=== PATIENT | male | born 1975 | race Caucasian/White ===

== ENCOUNTER 2016-10-12 03:32 | Emergency (ER) | payer SELFPAY ==
[2016-10-12 05:17] VITALS: BP 156/111
== END 2016-10-12 05:17 | disposition other institution (70) ==
LOC: ED 03:32
DX: S00.03XA Contusion of scalp, initial encounter (principal); Y33.XXXA Other specified events, undetermined intent, initial encounter; Y93.89 Activity, other specified; Y92.89 Other specified places as the place of occurrence of the external cause; Y99.8 Other external cause status

== ENCOUNTER 2016-10-12 03:32 | Emergency (ER) | payer OTHER | END 2016-10-12 05:17 | disposition other institution (70) | LOC: ED 03:32 | DX: Z02.89 Encounter for other administrative examinations (principal) ==

== ENCOUNTER 2017-05-08 22:24 | Emergency (ER) | payer SELFPAY ==
[2017-05-08 22:56] VITALS: BP 142/79
== END 2017-05-09 00:42 | disposition left against medical advice (07) ==
LOC: ED 22:24
DX: M25.531 Pain in right wrist (principal); Z53.21 Procedure and treatment not carried out due to patient leaving prior to being seen by health care provider

== ENCOUNTER 2018-09-14 10:33 | Emergency (ER) | payer OTHER ==
[~2018-09-14] VITALS: Ht 182.9 cm; Wt 122.0 kg
[2018-09-14 11:11] VITALS: Ht 182.9 cm; Wt 122.0 kg
[2018-09-14 11:33] LABS: BASOPHIL % 0.5 % (0-2); PLATELET COUNT 288 x10^3mcL (130-400); RED CELL DISTRIBUTION WIDTH 14.4 % (11.5-14.5)
[2018-09-14 11:42] LABS: CALCIUM 9.3 mg/dL (8.5-10.1); CARBON DIOXIDE 29.2 mmol/L (21-32); CHLORIDE SERUM 105 mmol/L (98-107); GFR1 > 60 mL/min; GLUCOSE SERUM 97 mg/dL (74-106); POTASSIUM SERUM 4.6 mmol/L (3.5-5.1); SODIUM SERUM 140 mmol/L (136-145)
[2018-09-14 11:47] LABS: ALKALINE PHOSPHATASE 64 U/L (46-116); ALT/SGPT 71 U/L (16-63); AST/SGOT 33 U/L (15-37); BILIRUBIN TOTAL 0.1 mg/dL (0.20-1.00)
[2018-09-14 14:16] VITALS: BP 131/75
== END 2018-09-14 14:16 | disposition home or self-care (01) ==
LOC: ED 10:33
PROVIDERS: Emergency Medicine
DX: R07.89 Other chest pain (principal); R06.02 Shortness of breath; R61 Generalized hyperhidrosis; Z88.0 Allergy status to penicillin
CPT/HCPCS: 36415; Q0092

== ENCOUNTER 2020-04-11 02:27 | Emergency (ER) | payer BC | END 2020-04-11 04:00 | disposition left against medical advice (07) | LOC: ED 02:27 | DX: Z53.21 Procedure and treatment not carried out due to patient leaving prior to being seen by health care provider (principal) ==

== ENCOUNTER 2020-04-11 08:42 | Emergency (ER) | payer BC ==
[~2020-04-11] VITALS: Ht 188 cm; Wt 99.8 kg
[2020-04-11 08:59] VITALS: Ht 188 cm; Wt 99.8 kg
[2020-04-11 12:28] VITALS: BP 147/92
== END 2020-04-11 12:28 | disposition home or self-care (01) ==
LOC: ED 08:42
DX: S01.511A Laceration without foreign body of lip, initial encounter (principal); I10 Essential (primary) hypertension; F17.210 Nicotine dependence, cigarettes, uncomplicated; Z88.0 Allergy status to penicillin; W51.XXXA Accidental striking against or bumped into by another person, initial encounter; Y93.89 Activity, other specified; Y92.89 Other specified places as the place of occurrence of the external cause; Y99.8 Other external cause status
CPT/HCPCS: 99406; J2001

== ENCOUNTER 2020-04-15 14:33 | Emergency (ER) | payer BC ==
[~2020-04-15] VITALS: Ht 188 cm; Wt 102.1 kg
[2020-04-15 15:08] VITALS: Ht 188 cm; Wt 102.1 kg
[2020-04-15 15:59] VITALS: BP 133/77
== END 2020-04-15 15:59 | disposition home or self-care (01) ==
LOC: ED 14:33
DX: L08.9 Local infection of the skin and subcutaneous tissue, unspecified (principal); K13.0 Diseases of lips; I10 Essential (primary) hypertension; Z88.8 Allergy status to other drugs, medicaments and biological substances

== ENCOUNTER 2020-04-19 21:05 | Emergency (ER) | payer BC ==
[~2020-04-19] VITALS: Ht 188 cm; Wt 101.3 kg
[2020-04-19 21:15] VITALS: Ht 188 cm; Wt 101.3 kg
[2020-04-19 21:55] VITALS: BP 124/82
== END 2020-04-19 21:55 | disposition home or self-care (01) ==
LOC: ED 21:05
DX: S01.511A Laceration without foreign body of lip, initial encounter (principal); I10 Essential (primary) hypertension; Z88.0 Allergy status to penicillin; X58.XXXA Exposure to other specified factors, initial encounter; Y93.89 Activity, other specified; Y92.89 Other specified places as the place of occurrence of the external cause; Y99.8 Other external cause status